=== PATIENT | female | born 1960 | race Asian ===

== ENCOUNTER → 2019-07-20 11:33 | Outpatient (CLI) | payer OTHER, SELFPAY ==
[2019-07-20 11:00] VITALS: BMI 18.8
[2019-07-20 12:33] LABS: Absolute Lymphocyte Count 3.07 X10^3/uL (0.83-4.51); Absolute Neutrophil Count 6.5 X10^3/uL (2.0-7.7); Basophil# 0.12 X10^3/uL; Basophil% 1.1 % (0-1); Eosinophil# 0.59 X10^3/uL; Eosinophils% 5.2 % (0-5); Hematocrit 42.9 % (37-47); Hemoglobin 13.6 g/dL (12.0-15.0); Lymphocyte # 3.07 X10^3/ul (4.0); Mean Corp Hgb Conc 31.7 g/dL (32-36); Mean Corpuscular Volume 91.5 fL (81-99); Mean Platelet Vol. 9.9 fl (6.2-12.0); Monocyte# 1.06 X10^3/uL; Monocyte% 9.3 % (0-10); NRBC Flagged by Analyzer 0 % (0-5); Neutrophil # 6.51 X10^3/uL (2.7-7.7); Neutrophil % 57.1 % (47-70); Platelet Count 302 K/mm3 (150-450); RBC Distribution Width CV 13.9 % (11.6-14.6); RBC Distribution Width SD 46.6 fl (35.1-43.9); Red Blood Count 4.69 M/mm3 (4.2-5.4); White Blood Count 11.4 K/mm3 (4.4-11.0)
[2019-07-20 13:20] LABS: ALB/GLOB Ratio 0.9 RATIO (0.9-2.4); AST(SGOT) 20 U/L (15-37); Alanine Aminotransfer ALT/SGPT 19 U/L (13-56); Albumin, Serum 3.8 g/dL (3.2-5.0); Alkaline Phosphatase 74 U/L (45-117); Anion Gap 6 (5-15); BUN 15 mg/dL (7-18); BUN/Creat Ratio 22.7 RATIO (10-20); Calcium,Total 8.3 mg/dL (8.5-10.1); Chloride 110 mmol/L (98-107); Cholesterol 145 mg/dL (200); Creatinine, Serum 0.66 mg/dL (0.55-1.02); EST Glomerular Filtration Rate 97 mL/min (>60); Est Glom Filt Rate - Afr Amer 118 mL/min (>60); Globulin 4.4 g/dL (2.2-4.2); Glucose 92 mg/dL (74-106); High Density Lipoprotein 57 mg/dL; Potassium 4.3 mmol/L (3.5-5.1); Protein, Total 8.2 g/dL (6.4-8.2); Sodium Level 141 mmol/L (136-145); Triglycerides 119 mg/dL; Very Low Density Lipoprotein 24 mg/dL (5-40)
== END ==
PROVIDERS: Family Provider Internal Medicine; PCP Internal Medicine; Visit Provider Internal Medicine
DX: I10 Essential (primary) hypertension (principal); Z72.0 Tobacco use
CPT/HCPCS: 36415; 80053; 80061; 85025

== ENCOUNTER → 2019-07-25 10:32 | Outpatient (CLI) | payer OTHER, SELFPAY ==
[2019-07-20 11:00] VITALS: BMI 18.8
--- NOTE | 2019-07-25 10:35 | EKG12_ITS ---
Test Reason : ROUTINE Blood Pressure : / mmHG Vent. Rate : 078 BPM Atrial Rate : 078 BPM P-R Int : 160 ms QRS Dur : 092 ms QT Int : 414 ms P-R-T Axes : 033 -35 059 degrees QTc Int : 471 ms Normal sinus rhythm Possible Left atrial enlargement Left axis deviation Abnormal ECG Confirmed by BREANNA WALLIS, JAYLAN ([id number]), web content editor MACIE COHEN ([id number]) on 07/26/2019 9:41:40 AM Referred By: Evan Benitez Confirmed By:JAYLAN CARLOS MD
[2020-11-02 11:22] VITALS: BMI 20.7
== END ==
PROVIDERS: Family Provider Internal Medicine; PCP Internal Medicine; Referring Provider Internal Medicine; Visit Provider Internal Medicine
DX: I10 Essential (primary) hypertension (principal); R07.9 Chest pain, unspecified
CPT/HCPCS: 93005

== ENCOUNTER → 2019-08-04 17:30 | Outpatient (CLI) | payer OTHER, SELFPAY ==
[2019-07-20 11:00] VITALS: BMI 18.8
--- NOTE | 2019-08-04 17:30 | BI_ITS ---
MAMMOGRAPHY - BILATERAL SCREENING 3-D TOMOSYNTHESIS REASON FOR EXAM: Female, 59 years old. BILAT SCREENING - NO FAM HX - NO PREV SURG''S PERTINENT HISTORY: No significant family history. TECHNIQUE: 2-D mammograms and 3-D Tomosynthesis of the breast (s) were performed. CAD was performed. COMPARISON: January 01, 2012 FINDINGS: The breast composition is heterogeneously dense that can obscure small breast masses. Scattered benign calcifications are seen. No dense spiculated masses or suspicious microcalcifications are identified. No architectural distortion is identified. There is no skin thickening or retraction. There has been no significant change since the prior study. BI/SCREEN MAMM (CAD) W/MARY BILAT IMPRESSION: No mammographic signs of malignancy. Routine yearly mammograms recommended. ASSESSMENT CATEGORY: BIRADS Category 2: Benign. A letter regarding these results will be sent to the patient by the facility within 30 days. FOLLOW UP RECOMMENDATION: Yearly follow up mammogram recommended. (A) Approximately 10% of breast cancers are not detected by mammography. A normal mammogram should not delay biopsy of a clinically suspicious abnormality. Electronically Signed: Benjy Venegas MD at 8:18 EST , Service support ,
== END ==
PROVIDERS: Family Provider Internal Medicine; PCP Internal Medicine; Referring Provider Internal Medicine; Visit Provider Internal Medicine
DX: Z12.31 Encounter for screening mammogram for malignant neoplasm of breast (principal)
CPT/HCPCS: 77063; 77067

== ENCOUNTER → 2019-08-23 14:09 | Outpatient (CLI) | payer OTHER, SELFPAY ==
[2019-08-05 15:35] VITALS: BMI 18.5
[2019-08-23 13:39] VITALS: BMI 18.9
--- NOTE | 2019-08-23 14:11 | CT_ITS ---
STUDY: LOW DOSE CT LUNG CANCER SCREENING REASON FOR EXAM: Female, 59 years old. LUNG SCREEN, SMOKER X 40+ YRS X 1 PPD RADIATION DOSAGE (If Supplied By Facility): CTDIvol = ( 1.70 ) mGy, DLP = ( 52.76 ) mGycm TECHNIQUE: No contrast was administered. Low dose technique was utilized (average mAS-38 and kVp 120). 1.25 mm axial source images with a slice interval of 1.25-mm were reconstructed in lung windows. 2.5 mm axial source images with a slice interval of 2.5-mm were reconstructed in lung windows. 5.0 mm axial source images with a slice interval of 5.0-mm were reconstructed in soft tissue windows. Nodule measured using lung windows on PACS and/or independent workstation with automated measurement of minimum and maximum diameter. Nodule measurement reported as average diameter rounded to the nearest whole number. Growth is defined as an increase ins size of greater than 1.5 mm. COMPARISON: None. NODULES: There is evidence of bilateral apical scarring worse in the right lung apex. Total lung nodules (excluding granulomas): Emphysema: Diffuse emphysematous changes. Bullous formation in both lungs. Endobronchial lesion: Aorta: Atherosclerotic calcification of the aortic arch and descending thoracic aorta. Coronary arteries: Coronary artery calcification. Heart: Mild cardiomegaly. Other chest and abdominal findings: Degenerative changes of the thoracic vertebrae. CT/Low Dose CT Lung Screening IMPRESSION: Lung-RADS category 2 - Continue annual screening with LDCT in 12 months. IMPORTANT NOTES FOR USE: ACR Lung-RADS Version 1.0 Assessment Categories Release Date: November 28, 2013 Category: Coded 0-4 bases on nodule(s) with highest degree of suspicion. Negative screen is defined as categories 1 and 2; a positive screen is defined as categories 3 and 4. Category 3 and 4A nodules that are unchanged on interval CT should be coded as category 2, and individuals returned to screening in 12 months. Category 4X: Category 3 or 4 nodules with additional imaging findings that increase the suspicion of lung cancer, such as spiculation, GGN that doubles in size in 1 year, enlarged lymph notes, etc. Category Modifiers: S (significant finding unrelated to lung cancer) and C (prior history of treated lung cancer) may be added to the 0-4 Lung-RADS Electronically Signed: Sanjay Hernandez, at 14:46 EST , Service support ,
== END ==
PROVIDERS: Family Provider Internal Medicine; PCP Internal Medicine; Referring Provider Nurse Practitioner Family; Visit Provider Nurse Practitioner Family
DX: F17.209 Nicotine dependence, unspecified, with unspecified nicotine-induced disorders (principal); Z12.2 Encounter for screening for malignant neoplasm of respiratory organs
CPT/HCPCS: G0297

== ENCOUNTER → 2019-08-25 12:08 | Outpatient (CLI) | payer OTHER, SELFPAY ==
[2019-08-25 12:07] VITALS: BMI 18.8
--- NOTE | 2019-08-25 12:09 | RAD_ITS ---
STUDY: X-RAY CHEST REASON FOR EXAM: Female, 59 years old. COUGH TECHNIQUE: PA and lateral views of the chest. COMPARISON: 02/02/2012 FINDINGS: The lungs are clear and expanded. There is no demonstrated pleural abnormality. There is moderate cardiac enlargement. Normal mediastinum and silverio. Normal visualized pulmonary arteries. Normal visualized aortic arch and descending thoracic aorta. Normal visualized thoracic spine. Normal visualized ribs, clavicles, and shoulders. There is no demonstrated abnormality of the visualized soft tissue structures of the upper abdomen. RAD/Chest PA and Lateral IMPRESSION: No active disease. Electronically Signed: Feroz Eid MD at 12:48 EST Tel , Service support ,
== END ==
LOC: HPRAD 12:09
PROVIDERS: PCP Internal Medicine; Referring Provider Physician Assistant; Visit Provider Physician Assistant
DX: R05 Cough (principal)
CPT/HCPCS: 71046

== ENCOUNTER → 2020-01-02 07:53 | Outpatient (CLI) | payer OTHER, SELFPAY ==
[2019-12-08 16:56] VITALS: BMI 18.9
--- NOTE | 2020-01-02 12:34 | PFT ---
INTRODUCTION: The patient is a 59-year-old female that presents for pulmonary function studies secondary to a diagnosis of dyspnea. Respiratory therapy reports good patient effort. Bronchodilators were used during testing. INTERPRETATION: Forced expiration spirometry demonstrates no evidence of a large airways obstructive ventilatory defect. There was no significant response to aerosolized bronchodilators. Spirograms are of good quality and plateau normally. Body plethysmography was performed and reveals a decreased TLC to 3.3 L, 77% of predicted, indicative of a mild restrictive ventilatory impairment. Diffusing capacity by single breath CO is at the lower limits of normal. IMPRESSION: Isolated mild restrictive ventilatory impairment with diffusing capacity at the lower limits of normal.
== END ==
PROVIDERS: PCP Internal Medicine; Referring Provider Nurse Practitioner Family; Visit Provider Nurse Practitioner Family
DX: J44.9 Chronic obstructive pulmonary disease, unspecified (principal)
CPT/HCPCS: 94060; 94726; 94729

== ENCOUNTER → 2020-11-02 11:17 | Outpatient (CLI) | payer MEDICAID, SELFPAY ==
[2020-11-02 10:36] VITALS: BMI 20.7
[2020-11-02 11:22] VITALS: BMI 20.7
[2020-11-02 12:06] LABS: Absolute Lymphocyte Count 2.58 X10^3/uL (0.83-4.51); Basophil# 0.08 X10^3/uL; Eosinophil# 0.29 X10^3/uL; Eosinophils% 3.7 % (0-5); Hematocrit 42.7 % (37-47); Hemoglobin 13.1 g/dL (12.0-15.0); Lymphocyte # 2.58 X10^3/ul (4.0); Lymphocyte % 32.5 % (19-41); Mean Corp Hgb Conc 30.7 g/dL (32-36); Mean Corpuscular Hgb 27.6 pg (27.0-32.0); Mean Corpuscular Volume 90.1 fL (81-99); Mean Platelet Vol. 9.9 fl (6.2-12.0); Monocyte# 0.93 X10^3/uL; Monocyte% 11.7 % (0-10); NRBC Flagged by Analyzer 0 % (0-5); Neutrophil # 4.04 X10^3/uL (2.7-7.7); Platelet Count 331 K/mm3 (150-450); RBC Distribution Width CV 14.9 % (11.6-14.6); RBC Distribution Width SD 49.7 fl (35.1-43.9); Red Blood Count 4.74 M/mm3 (4.2-5.4); White Blood Count 7.9 K/mm3 (4.4-11.0)
[2020-11-02 12:42] LABS: Vitamin D,25 Hydroxy 12.9 ng/mL
[2020-11-02 12:46] LABS: ALB/GLOB Ratio 0.8 RATIO (0.9-2.4); AST(SGOT) 17 U/L (15-37); Alanine Aminotransfer ALT/SGPT 16 U/L (13-56); Albumin, Serum 3.6 g/dL (3.2-5.0); Alkaline Phosphatase 81 U/L (45-117); Anion Gap 4 (5-15); BUN 14 mg/dL (7-18); BUN/Creat Ratio 22.5 RATIO (10-20); Calcium,Total 8.8 mg/dL (8.5-10.1); Chloride 110 mmol/L (98-107); Cholesterol 161 mg/dL (200); Creatinine, Serum 0.62 mg/dL (0.55-1.02); EST Glomerular Filtration Rate 104 mL/min (>60); Est Glom Filt Rate - Afr Amer 126 mL/min (>60); Globulin 4.6 g/dL (2.2-4.2); Glucose 78 mg/dL (74-106); High Density Lipoprotein 51 mg/dL; Potassium 4.2 mmol/L (3.5-5.1); Protein, Total 8.2 g/dL (6.4-8.2); Sodium Level 142 mmol/L (136-145); Thyroid Stim Hormone (TSH) 4.62 uIU/mL (0.358-3.74); Triglycerides 108 mg/dL; Very Low Density Lipoprotein 22 mg/dL (5-40)
[2020-11-02 15:10] LABS: T4 Free Direct 0.75 ng/dL (0.76-1.46)
== END ==
PROVIDERS: PCP Internal Medicine; Referring Provider Nurse Practitioner Family; Visit Provider Nurse Practitioner Family
DX: Z00.00 Encounter for general adult medical examination without abnormal findings (principal); F32.9 Major depressive disorder, single episode, unspecified; I10 Essential (primary) hypertension; E55.9 Vitamin D deficiency, unspecified; R79.89 Other specified abnormal findings of blood chemistry
CPT/HCPCS: 36415; 80053; 80061; 82306; 84439; 84443; 85025

== ENCOUNTER → 2020-11-15 13:50 | Outpatient (CLI) | payer MEDICAID, SELFPAY ==
[2020-11-02 11:22] VITALS: BMI 20.7
--- NOTE | 2020-11-15 13:53 | BI_ITS ---
MAMMOGRAPHY - BILATERAL SCREENING REASON FOR EXAM: Female, 60 years old. Routine annual screening examination. PERTINENT HISTORY: Non-contributory. TECHNIQUE: Digital bilateral breast mary (3D mammographic acquisition) in the CC and MLO projections. 2-D mediolateral oblique (MLO) and craniocaudad (CC) views of both breasts were obtained. CAD: Full Field Digital Mammography with Computer Added Detection was performed. COMPARISON: Comparison is made with prior study dated 02/02/2020 and 01/01/2012. FINDINGS: Breast Composition: The breasts are heterogeneously dense, which may obscure small masses. There are no dominant masses or suspicious calcifications. No other significant abnormalities are identified. There has been no significant change since the prior study. BI/SCRN MAMM (CAD)W/MARY BILAT IMPRESSION: Stable bilateral screening mammogram. Yearly follow-up mammogram recommended. (A) ASSESSMENT CATEGORY: BIRADS Category 1: Negative. A letter regarding these results will be sent to the patient by the facility within 30 days. Approximately 10% of breast cancers are not detected by mammography. A normal mammogram should not delay biopsy of a clinically suspicious abnormality. [id number] Electronically Signed: Sanjay Hernandez MD at 14:40 EDT , Service support ,
--- NOTE | 2020-11-15 14:25 | BD_ITS ---
STUDY: DUAL ENERGY X-RAY ABSORPTIOMETRY / DXA REASON FOR EXAM: Female, 60 years old. Screening TECHNIQUE: Bone Mineral Density (BMD) measurements of lumbar spine and bilateral hips were obtained. COMPARISON: None. FINDINGS: Lumbar Spine (L1-L4): g/cm2 (0.834) / T-score (-2.9) / Z-score (-1.7) Findings are suggestive of osteoporosis with a high fracture risk. Left Femur Total: g/cm2 (0.772) / T-score (-1.9) / Z-score (-0.9) Left Femoral Neck: g/cm2 (0.669) / T-score (-2.7) / Z-score (-1.4) Right Femur Total: g/cm2 (0.701) / T-score (-2.4) / Z-score (-1.5) Right Femoral Neck: g/cm2 (0.688) / T-score (-2.5) / Z-score (-1.3) BD/Dexa Bone Density Study IMPRESSION: The patient is considered osteoporotic as outlined below according to World Juan Organization (WHO) criteria with a high fracture risk. Reference Information: The T-score is the number of standard deviations above or below the standard which is normal for young adults at their peak bone mineral density. The World Health Organization (WHO) interprets the T-scores as follows: Above -1 Normal bone density Between -1 and -2.5 Osteopenia Equal to / or below -2.5 Osteoporosis As a practical clinical guideline, osteopenia may be graded as follows: Mild -1 through -1.5 Moderate -1.6 through -2.0 Severe -2.1 through -2.4 The Z-score is the number of standard deviations above or below age-matched controls. A Z-score of less than -1.5 would be considered abnormal. References: 1. NIH Osteoporosis and Related Bone Diseases www osteo.org 2. International Society for Clinical Densitometry www iscd.org 3. National Osteoporosis Foundation www nof.org Electronically Signed: Sanjay Hernandez MD at 14:51 EDT , Service support ,
== END ==
PROVIDERS: PCP Nurse Practitioner Family; Referring Provider Nurse Practitioner Family; Visit Provider Nurse Practitioner Family
DX: Z00.00 Encounter for general adult medical examination without abnormal findings (principal); Z78.0 Asymptomatic menopausal state; Z12.31 Encounter for screening mammogram for malignant neoplasm of breast
CPT/HCPCS: 77063; 77067; 77080

== ENCOUNTER → 2020-11-20 14:10 | Outpatient (CLI) | payer MEDICAID, SELFPAY ==
[2020-11-02 11:22] VITALS: BMI 20.7
[2020-11-20 13:52] VITALS: BMI 20.7
--- NOTE | 2020-11-20 14:12 | CT_ITS ---
STUDY: LOW DOSE CT LUNG CANCER SCREENING REASON FOR EXAM: Female, 60 years old. Lung cancer screening -- 41 pack year history; asymptomatic; current smoker RADIATION DOSAGE (If Supplied By Facility): CTDIvol = ( 1.59 ) mGy, DLP = ( 52.22 ) mGycm TECHNIQUE: No contrast was administered. Low dose technique was utilized (average mAS-38 and kVp 120). 1.25 mm axial source images with a slice interval of 1.25-mm were reconstructed in lung windows. 2.5 mm axial source images with a slice interval of 2.5-mm were reconstructed in lung windows. 5.0 mm axial source images with a slice interval of 5.0-mm were reconstructed in soft tissue windows. Nodule measured using lung windows on PACS and/or independent workstation with automated measurement of minimum and maximum diameter. Nodule measurement reported as average diameter rounded to the nearest whole number. Growth is defined as an increase ins size of greater than 1.5 mm. COMPARISON: Comparison is made with prior examination dated 08/23/2019. NODULES: No suspicious nodule is seen. Emphysema: Emphysematous changes. Bullous formations in both lungs. Stable scarring in the lung apices. Endobronchial lesion: None Aorta: Atherosclerotic calcification of the aortic arch. Coronary arteries: Coronary artery calcification. Heart: Mild cardiomegaly Other chest and abdominal findings: CT/Low Dose CT Lung Screening IMPRESSION: Lung-RADS category 2 - Continue annual screening with LDCT in 12 months. IMPORTANT NOTES FOR USE: ACR Lung-RADS Version 1.1 Assessment Categories Release Date: 2018 Category: Coded 0-4 bases on nodule(s) with highest degree of suspicion. Negative screen is defined as categories 1 and 2; a positive screen is defined as categories 3 and 4. Category 3 and 4A nodules that are unchanged on interval CT should be coded as category 2, and individuals returned to screening in 12 months. Category 4X: Category 3 or 4 nodules with additional imaging findings that increase the suspicion of lung cancer, such as spiculation, GGN that doubles in size in 1 year, enlarged lymph notes, etc. Category Modifiers: S (significant finding unrelated to lung cancer) Electronically Signed: Sanjay Hernandez MD at 15:02 EDT , Service support ,
== END ==
PROVIDERS: PCP Nurse Practitioner Family; Referring Provider Nurse Practitioner Family; Visit Provider Nurse Practitioner Family
DX: F17.209 Nicotine dependence, unspecified, with unspecified nicotine-induced disorders (principal); Z12.2 Encounter for screening for malignant neoplasm of respiratory organs
CPT/HCPCS: 71271

== ENCOUNTER 2020-11-22 09:41 | Outpatient (RCR) | payer MEDICAID, SELFPAY ==
[2020-11-20 13:52] VITALS: BMI 20.7
== END 2021-01-08 23:59 ==
LOC: IMMUN 09:41
PROVIDERS: PCP Nurse Practitioner Family; Referring Provider Family Medicine; Visit Provider Family Medicine
DX: Z23 Encounter for immunization (principal)
CPT/HCPCS: 0001A; 0002A; 91300

== ENCOUNTER → 2020-11-22 10:51 | Outpatient (CLI) | payer MEDICAID, SELFPAY ==
[2020-11-02 11:22] VITALS: BMI 20.7
[2020-11-20 13:52] VITALS: BMI 20.7
--- NOTE | 2020-11-22 10:54 | US_ITS ---
STUDY: ULTRASOUND BREAST - LEFT REASON FOR EXAM: Female, 60 years old. Pain in the left breast. TECHNIQUE: Axial and longitudinal images of the LEFT breast were performed with a high resolution ultrasound transducer. # OF IMAGES: 55 COMPARISON: Comparison is made with prior mammogram dated 11/15/2020. FINDINGS: LEFT Breast: The entire breast was examined by ultrasound. No sonographic abnormality is seen. US/Breast Complete Unilateral IMPRESSION: No sonographic abnormality is seen. ASSESSMENT CATEGORY: BIRADS Category 1: Negative. A letter regarding these results will be sent to the patient by the facility within 30 days. Electronically Signed: Sanjay Hernandez MD at 12:12 EDT , Service support ,
--- NOTE | 2020-11-22 12:59 | STRESSREP ---
Stress Test Report Date: 11/22/2020 Procedure: Exercise tolerance test Indications: Chest pain Consent: Per the patient Procedure: The patient exercised on a Kendrick protocol for 3 minutes achieving a peak heart rate of 137 bpm (85% predicted maximal heart rate) with a peak blood pressure 210/72 mmHg and a peak MET capacity of approximately 4.6 MET's. The baseline ECG demonstrated normal sinus rhythm. The peak exercise ECG demonstrated no significant ischemic changes. [There were no cardiac dysrhythmias pretest, during exercise, or recovery]. The functional capacity was considered decreased for age. The patient had no complaint of chest discomfort during exercise or recovery. The examination was discontinued secondary to dyspnea. Impression: 1. Technically adequate (percent predicted maximal heart rate greater than 85%) exercise tolerance test 2. Stress test is negative for exercise-induced chest pain. 3. Stress test test is negative for exercise-induced EKG changes of ischemia. 4. Functional capacity is decreased for age This note was generated with ReferBrightation software. It may contain incorrect words, spelling, and punctuation that were not noted in checking the note before signing.
== END ==
PROVIDERS: PCP Nurse Practitioner Family; Referring Provider Nurse Practitioner Family; Visit Provider Nurse Practitioner Family
DX: N64.4 Mastodynia (principal); R07.9 Chest pain, unspecified; I10 Essential (primary) hypertension; Z72.0 Tobacco use
CPT/HCPCS: 76641; 93017

== ENCOUNTER 2020-12-03 14:30 | Outpatient (RCR) | payer MEDICAID, SELFPAY ==
[2020-11-02 11:22] VITALS: BMI 20.7
--- NOTE | 2020-11-13 13:41 | HP.PTEVAL_ITS ---
Patient's Visit Information KELLEY BOSTON is a 60 year old F referred to Physical Therapy by JEF Quan with a diagnosis of BPPV. Date of Evaluation: 11/13/20 Physical Therapist: Stone Samuels, WAYNET, OCS, CSCS - Visit Plan Frequency: 1-2x /Week Duration: 2-4 Weeks Plan: 1-2x/week as needed for 2-4 weeks for positional monitorring and treatments, other vestibualr as needed. - Subjective Dizzyness for a year now. More bad days then good days. Some days feel normal. Hard to pinpoint what causes it. Gets sick at times. Haven't felt completely normal in a year. No impetous. Dizzyness is described as lightheaded and a little spinning. More light headed today. If I move too fast then I might spin. Try to avoid that. Threw up one time. No falls. getting up too fast and bending will make her worse. Fast lying in bed will cause it. Rolling bed can cause it for a bit until she is still. Sleep is OK. wakes up dizzy sometimes. Not employed because of this, would be if it wasn't for this but does not have a job. Has COPD also. Baasic ADLs at home are OK, just has to be slow. Hobbies: feels she cannot have fun anymore. Would enjoy fishing and riding. - Objective Walks normal and I, trasnfers I without EU, steps easily reciprocally without rail. Cervical aROM WFL and no pain. reflexes bi and tri 2/3, Sensation UE WNl to gross lgiht touch. aROM UE normal. - L hallpike michelle. + R hallpike michelle for asymmetrical dizzyness and discomfort in eyes open, hard to tell nystagmus with her discomfort. Treated with Julieta. - Balance Scores Functional Gait Assessment Score: 30 % Disability: 0 - Goals Goal 1:: abolish dizzyness Goal Time Frame: 4-6 Weeks Goal 2:: DHI score less than 10 Goal Time Frame: 4-6 Weeks Goal 3:: Pt feel 90% better with dizzyness and function Goal Time Frame: 4-6 Weeks Goal 4:: Pt feel ready to return to a job comfortably. Goal Time Frame: 4-6 Weeks - Rehabilitation Potential Physical Therapy Diagnosis: Likely BPPV as related dysfunction Rehabilitation Potential: Fair - Anticipated Interventions Patient/Client Instruction: Educate patient on: Condition, Plan of Care For the Purpose of:: To increase tolerance to activity/condition/position Comment: vestibular therapy, positional For the Purpose of:: To increase tolerance to activity/condition/position Thank you for the opportunity to evaluate your patient. For Medicare and Medicare HMO plans, please review the plan of care and approve it. It will need to be FAXED BACK to us at [phone] for Medicare purposes. For Medicare only, by signing this I certify the plan of care. Please let me know if there are questions or concerns regarding this plan of care. Physician Signature: Date:
--- NOTE | 2020-12-03 14:38 | HP.PTDCSUM ---
It has been my pleasure to treat KELLEY BOSTON referred by JEF Quan, with the diagnosis of BPPV for a total of 4 visit(s). Discharge Date: 12/03/20 Please see the following information for a summary of their discharge status. Subjective: No dizzyness. Slight very slight lightheadedness once in a blue whyte upon arising bet. Activities normal. Sleep is normal. To Dr. Mendoza next week. % Improvement: 99 Objective/Function: - B hallpike michelle. - roll test. FGA is still perfect. No dizzyness today except slight sitting up from R side. Overall significantly better. Goal 1:: abolish dizzyness Goal Progress: 99 Goal 2:: DHI score less than 10 Goal Progress: Progressing Goal 3:: Pt feel 90% better with dizzyness and function Goal Progress: Goal Met Goal 4:: Pt feel ready to return to a job comfortably. Goal Progress: Feels ready. Plan: d/c, pt to doc next week. Discharge Comments: 99% better adn to doctor next week. If there are questions or concerns regarding this patient's physical therapy, please feel free to call me at [phone]. Thank you for the referral of this patient. Sincerely, Stone Samuels, DPT, OCS, CSCS
== END 2020-12-03 19:00 | disposition home or self-care (01) ==
LOC: PT 14:30
PROVIDERS: PCP Nurse Practitioner Family; Referring Provider Nurse Practitioner Family; Visit Provider Nurse Practitioner Family
DX: H81.10 Benign paroxysmal vertigo, unspecified ear (principal)
CPT/HCPCS: 97110; 97161; 97164; 97530

== ENCOUNTER → 2021-03-08 10:31 | Outpatient (CLI) | payer MEDICAID, SELFPAY ==
[2021-03-08 10:06] VITALS: BMI 20.5
[2021-03-08 12:07] LABS: Vitamin D,25 Hydroxy 50.1 ng/mL
[2021-03-08 12:18] LABS: T4 Free Direct 0.78 ng/dL (0.76-1.46); Thyroid Stim Hormone (TSH) 4.14 uIU/mL (0.358-3.74)
[2021-03-08 13:21] LABS: Anion Gap 5 (5-15); BUN 15 mg/dL (7-18); BUN/Creat Ratio 22.4 RATIO (10-20); Calcium,Total 9.3 mg/dL (8.5-10.1); Chloride 108 mmol/L (98-107); Creatinine, Serum 0.67 mg/dL (0.55-1.02); EST Glomerular Filtration Rate 95 mL/min (>60); Est Glom Filt Rate - Afr Amer 115 mL/min (>60); Glucose 86 mg/dL (74-106); Sodium Level 140 mmol/L (136-145)
== END ==
PROVIDERS: Nurse Practitioner Family; PCP Internal Medicine; Referring Provider Internal Medicine; Visit Provider Internal Medicine
DX: M81.0 Age-related osteoporosis without current pathological fracture (principal); E55.9 Vitamin D deficiency, unspecified; E03.9 Hypothyroidism, unspecified
CPT/HCPCS: 36415; 80048; 82306; 84439; 84443

== ENCOUNTER → 2021-07-09 | Outpatient (CLI) | payer MEDICAID, SELFPAY | END | disposition home or self-care (01) | LOC: LABSPEC 11:31 | PROVIDERS: PCP Internal Medicine; Referring Provider Physician Assistant; Visit Provider Physician Assistant | DX: U07.1 COVID-19 (principal) | CPT/HCPCS: 87635; U0005; U0003 ==

== ENCOUNTER 2021-07-12 13:07 | Outpatient (CLI) | payer MEDICAID, SELFPAY ==
[2021-07-12 13:28] VITALS: BP 135/76; PULSE 72; RESP 16; TEMP 36.8; O2SAT 100; BMI 19.4
[2021-07-12] MEDS: 0.9% Saline Lock 10 ML Syringe IV (13:30)
[2021-07-12 13:42] VITALS: BP 134/69; PULSE 71; RESP 16; TEMP 36.6; O2SAT 100
--- NOTE | 2021-07-12 13:48 | NURSING ---
PT C/O OF BACK PAIN. INFUSION STOPPED. PAIN SUBSIDED AND INFUSION RESTARTED AT 150CC/HR.
[2021-07-12 14:32] VITALS: BP 123/72; PULSE 67; RESP 16; TEMP 36.7; O2SAT 97
[2021-07-12 15:26] VITALS: BP 131/73; PULSE 66; RESP 16; TEMP 36.6; O2SAT 100
== END 2021-07-12 15:32 | disposition home or self-care (01) ==
LOC: MS3OUT 13:08 → MS3 13:09
PROVIDERS: Referring Provider Nurse Practitioner Adult Health; Visit Provider Nurse Practitioner Adult Health
DX: Z23 Encounter for immunization (principal); U07.1 COVID-19
CPT/HCPCS: J7050; M0245; Q0245; A4216

== ENCOUNTER → 2022-03-24 | Outpatient (CLI) | payer MEDICAID, SELFPAY ==
--- NOTE | 2022-03-24 15:23 | RAD_ITS ---
STUDY: X-RAY CHEST REASON FOR EXAM: Female, 61 years old. Cough, crackles TECHNIQUE: PA and lateral views of the chest. COMPARISON: 08/25/2019 FINDINGS: The lungs are clear and expanded. There is no demonstrated pleural abnormality. Normal size heart. Normal mediastinum and silverio. Normal visualized pulmonary arteries. Normal visualized aortic arch and descending thoracic aorta. Normal visualized thoracic spine. Normal visualized ribs, clavicles, and shoulders. There is no demonstrated abnormality of the visualized soft tissue structures of the upper abdomen. RAD/Chest PA and Lateral IMPRESSION: Normal x-ray examination of the chest. Electronically Signed: Feroz Eid MD at 17:09 EDT ,
== END | disposition home or self-care (01) ==
PROVIDERS: PCP Internal Medicine; Referring Provider Physician Assistant; Visit Provider Physician Assistant
DX: R05.9 Cough, unspecified (principal); J44.9 Chronic obstructive pulmonary disease, unspecified
CPT/HCPCS: 87635; 71046; U0003; U0005

== ENCOUNTER → 2022-07-31 | Outpatient (CLI) | payer OTHER, MEDICAID, SELFPAY | END | disposition home or self-care (01) | LOC: LABSPEC 14:52 | PROVIDERS: PCP Internal Medicine; Referring Provider Internal Medicine; Visit Provider Internal Medicine | DX: R05.9 Cough, unspecified (principal) | CPT/HCPCS: 87635; U0003; U0005 ==

== ENCOUNTER → 2022-12-02 | Outpatient (CLI) | payer MEDICAID, SELFPAY ==
--- NOTE | 2022-12-02 09:26 | BI_ITS ---
MAMMOGRAPHY - BILATERAL SCREENING REASON FOR EXAM: Female, 62 years old. Routine annual screening examination. PERTINENT HISTORY: Non-contributory. TECHNIQUE: Digital bilateral breast mary (3D mammographic acquisition) in the CC and MLO projections. 2-D mediolateral oblique (MLO) and craniocaudad (CC) views of both breasts were obtained. CAD: Full Field Digital Mammography with Computer Added Detection was performed. COMPARISON: Comparison is made with prior study dated November 15, 2020 and August 04, 2019. FINDINGS: Breast Composition: The breasts are heterogeneously dense, which may obscure small masses. There are no dominant masses or suspicious calcifications. No other significant abnormalities are identified. There has been no significant change since the prior study. BI/SCRN MAMM (CAD)W/MARY BILAT IMPRESSION: Stable bilateral screening mammogram. Yearly follow-up mammogram recommended. (A) ASSESSMENT CATEGORY: BIRADS Category 1: Negative. A letter regarding these results will be sent to the patient by the facility within 30 days. Approximately 10% of breast cancers are not detected by mammography. A normal mammogram should not delay biopsy of a clinically suspicious abnormality. [id number] Electronically Signed: Sanjay Hernandez MD at 10:58 EDT ,
--- NOTE | 2022-12-02 10:21 | PFT ---
INTRODUCTION: The patient is a 62-year-old female who presents for pulmonary function studies secondary to a diagnosis of COPD. Respiratory therapy reported good patient effort. Bronchodilators were used during testing. INTERPRETATION: Forced expiration spirometry demonstrates no evidence of a large airways obstructive ventilatory defect. There was no significant response to aerosolized bronchodilators. Spirograms are of good quality and plateau normally. Body plethysmography was performed and revealed a decreased TLC to 3.27 L, 76% of predicted, indicative of a mild restrictive ventilatory impairment. Diffusing capacity by single breath CO was within normal limits. IMPRESSION: Mild restrictive ventilatory impairment with preserved diffusing capacity.
== END | disposition home or self-care (01) ==
LOC: OPBI 07:59
PROVIDERS: PCP Internal Medicine; Referring Provider Internal Medicine; Visit Provider Internal Medicine
DX: Z12.31 Encounter for screening mammogram for malignant neoplasm of breast (principal); J44.9 Chronic obstructive pulmonary disease, unspecified; Z72.0 Tobacco use
CPT/HCPCS: 77063; 77067; 94060; 94726; 94729

== ENCOUNTER → 2023-02-19 | Outpatient (CLI) | payer MEDICAID, SELFPAY ==
[2023-02-19 12:33] LABS: Absolute Lymphocyte Count 1.73 X10^3/uL (0.83-4.51); Absolute Neutrophil Count 4.9 X10^3/uL (2.0-7.7); Basophil# 0.09 X10^3/uL; Basophil% 1.1 % (0-1); Eosinophil# 0.75 X10^3/uL; Hematocrit 41.2 % (37-47); Hemoglobin 12.4 g/dL (12.0-15.0); Lymphocyte # 1.73 X10^3/ul (0.83-4.51); Lymphocyte % 20.9 % (19-41); Mean Corp Hgb Conc 30.1 g/dL (32-36); Mean Corpuscular Hgb 27.1 pg (27.0-32.0); Mean Corpuscular Volume 90.2 fL (81-99); Mean Platelet Vol. 9.9 fl (6.2-12.0); Monocyte# 0.75 X10^3/uL; NRBC Flagged by Analyzer 0 % (0-5); Neutrophil # 4.94 X10^3/uL (2.7-7.7); Neutrophil % 59.6 % (47-70); Platelet Count 301 K/mm3 (150-450); Red Blood Count 4.57 M/mm3 (4.2-5.4); White Blood Count 8.3 K/mm3 (4.4-11.0)
[2023-02-19 13:40] LABS: ALB/GLOB Ratio 0.8 RATIO (0.9-2.4); AST(SGOT) 21 U/L (15-37); Alanine Aminotransfer ALT/SGPT 16 U/L (13-56); Albumin, Serum 3.4 g/dL (3.2-5.0); Alkaline Phosphatase 74 U/L (45-117); Anion Gap 5 (5-15); BUN 15 mg/dL (7-18); BUN/Creat Ratio 23.4 RATIO (10-20); Calcium,Total 8.4 mg/dL (8.5-10.1); Chloride 110 mmol/L (98-107); Cholesterol 153 mg/dL (200); Creatinine, Serum 0.64 mg/dL (0.55-1.02); EST Glomerular Filtration Rate 99 mL/min (>60); Est Glom Filt Rate - Afr Amer 120 mL/min (>60); Globulin 4.4 g/dL (2.2-4.2); Glucose 79 mg/dL (74-106); High Density Lipoprotein 52 mg/dL; Potassium 3.6 mmol/L (3.5-5.1); Protein, Total 7.8 g/dL (6.4-8.2); Sodium Level 139 mmol/L (136-145); T4 Free Direct 0.82 ng/dL (0.76-1.46); Thyroid Stim Hormone (TSH) 1.86 uIU/mL (0.358-3.74); Triglycerides 87 mg/dL; Very Low Density Lipoprotein 17 mg/dL (5-40)
== END | disposition home or self-care (01) ==
LOC: BIMLAB 11:12
PROVIDERS: PCP Internal Medicine; Referring Provider Internal Medicine; Visit Provider Internal Medicine
DX: K59.09 Other constipation (principal); I10 Essential (primary) hypertension
CPT/HCPCS: 36415; 80053; 80061; 84439; 84443; 85025

== ENCOUNTER → 2023-04-13 | Outpatient (CLI) | payer MEDICAID, SELFPAY ==
--- NOTE | 2023-04-13 07:59 | CT_ITS ---
STUDY: CT ABDOMEN AND PELVIS WITH CONTRAST REASON FOR EXAM: Female, 62 years old. Chronic constipation. Abd pain RADIATION DOSAGE (If Supplied By Facility): CTDIvol = ( 13.4 ) mGy, DLP = ( 311.84 ) mGycm TECHNIQUE: Transaxial images were obtained from the dome of the diaphragm to the symphysis pubis with oral contrast. Oral and amp; IV Gastrografin and amp; 100mL Isovue-370 was administered. Sagittal and coronal images were reconstructed. Individualized dose optimization techniques were used for this CT. COMPARISON: None. FINDINGS: Increased interstitial markings at the lung bases suggestive of mild scarring. The visualized portions of the heart are within normal limits. Normal liver. Normal gallbladder and extrahepatic biliary system. Normal spleen. Normal pancreas. Normal bilateral adrenal glands. Normal right kidney. Normal left kidney. Normal visualized stomach. Normal small intestine. Moderate amount of fecal material is seen throughout the colon. The appendix is visualized and appears normal. Normal abdominal aorta. Normal inferior vena cava. Normal retroperitoneum. Small lymph nodes are seen in the mesenteric fat in the right lower quadrant suggestive of mesenteric adenitis. Normal urinary bladder. There is absence of the uterus consistent with a prior hysterectomy. Normal abdominal wall. Straightening of the normal lumbar lordosis. CT/Abdomen/Pelvis WITH Contrast IMPRESSION: Moderate amount of fecal material is seen in the colon. Electronically Signed: Sanjay Hernandez MD at 15:27 EDT ,
[2023-04-13 11:01] LABS: CREATININE FINGERSTICK 0.9 mg/dL (0.55-1.02); EGFR FINGERSTICK > 60.0000 mL/min (>60)
== END | disposition home or self-care (01) ==
LOC: CT 07:52
PROVIDERS: PCP Internal Medicine; Referring Provider Internal Medicine; Visit Provider Internal Medicine
DX: K59.09 Other constipation (principal)
CPT/HCPCS: 74177; Q9967

== ENCOUNTER 2024-08-16 08:57 | Observation (INO) | payer BC, SELFPAY ==
[2024-08-16 08:58] VITALS: BP 116/75; PULSE 94; RESP 16; TEMP 36.2; O2SAT 98; BMI 18.9
--- NOTE | 2024-08-16 09:20 | RAD_ITS ---
STUDY: X-RAY CHEST REASON FOR EXAM: Female, 64 years old. Palpitations TECHNIQUE: Single AP portable view of the chest. COMPARISON: Comparison is made with prior study dated March 24, 2022. FINDINGS: EKG electrodes are seen. Findings suggestive of vascular congestion and mild degree of CHF. There is no demonstrated pleural abnormality. There is mild cardiac enlargement. Normal mediastinum and silverio. Normal visualized pulmonary arteries. There is atherosclerotic calcification of the aortic arch with tortuosity. There are degenerative changes of the visualized thoracic spine. Normal visualized ribs, clavicles, and shoulders. There is no demonstrated abnormality of the visualized soft tissue structures of the upper abdomen. RAD/Chest 1 View (Portable) IMPRESSION: Findings suggest vascular congestion and mild CHF. Electronically Signed: Sanjay Hernandez MD at 9:47 EST ,
--- NOTE | 2024-08-16 09:25 | EDS_ITS ---
HPI History of Present Illness Chief Complaint: Chest Pain Narrative Narrative: Chief complaint and HPI: Palpitations. 64-year-old female with no significant past medical history presents for evaluation of intermittent palpitations. Patient states she has a remote history of hypertension and no longer takes any medication. Patient states for the past several months she has been having intermittent palpitations and hypotension at home. She states she called her PCP and has an appointment scheduled for next month. Patient states she woke up this morning with palpitations which is why she presents. She denies any chest pain, shortness of breath, nausea, vomiting, abdominal pain, diarrhea. Denies any cardiac history. On presentation, patient is in atrial fibrillation with RVR. She states she has no history of this. Review of systems: See HPI Medications: As listed on the chart Allergies: As listed on the chart PFSH: Per chart Vital signs: As listed on the chart. Reviewed. Physical exam: Gen: A&O x3, NAD Head: Normocephalic, atraumatic Eyes: No sclera icterus, conjunctiva clear ENT: Moist mucous membranes Neck: Trachea midline, No JVD CV: Tachycardic, irregularly irregular rhythm, no murmurs, no peripheral edema Resp: Lungs CTA BL, no w/r/c GI: Abd soft, non-distended, non-tender, no r/r/g Musc: Full ROM, no deformity Skin: Warm, dry Neuro: Alert, oriented, grossly intact, sensation intact Psych: Cooperative, appropriate mood and affect [facility] Medical History Health care maintenance Chronic constipation Tobacco abuse Chronic obstructive pulmonary disease Chest pain, atypical Rib pain Cough Flu vaccine need Osteoporosis Right foot pain Vitamin D deficiency Vertigo Back pain Chest pain Migraines Shoulder pain, right SOB (shortness of breath) Weight loss HTN (hypertension) Home Medications ?Medication ?Instructions ?Recorded ?Last Taken ?Type albuterol sulfate 90 mcg/actuation 1 puff inhalation Q6H PRN PRN 08/16/24 Unknown History aerosol inhaler shortness of breath or wheezing Allergy/AdvReac Type Severity Reaction Status Date / Time No Known Allergies Allergy Verified 08/16/24 08:58 Family History Brother Lung cancer Father Myocardial infarction Social History Smoking Status: Current every day smoker tobacco type: cigarettes Tobacco: How many years used: 40 Electronic Cigarette Use: not used second hand exposure: Yes quit status: has quit before EXAM Physical Exam Const Vital Signs: 08/16/24 08:58 08/16/24 09:19 Temperature 97.1 F L Temperature Source Temporal Pulse Rate 94 Respiratory Rate 16 Respiratory Effort Normal Non-Labored Blood Pressure 116/75 Blood Pressure Mean 88 Pulse Ox 98 Oxygen Delivery Method Room Air MDM MDM MDM Narrative Medical decision making narrative: 64-year-old female with no significant past medical history presents for evaluation of intermittent palpitations. Symptoms ongoing for months. Denies any chest pain or shortness of breath. On presentation, patient is in atrial fibrillation with RVR. Heart rate is anywhere from the 120s to the 160s. This is likely the cause of her palpitations. She has no history of this. Differential diagnosis includes but is not limited to symptomatic atrial fibrillation, electrolyte abnormality, hyperthyroidism, ANAHY, less likely ACS or CHF. Patient's blood pressure is soft therefore NS bolus ordered with diltiazem IV for rate control. Cardiac workup ordered. EKG reviewed. Heart rate improved with diltiazem bolus. Chest x-ray reviewed. CBC without leukocytosis or anemia. Coagulation panel unremarkable. BMP without ANAHY. Magnesium level unremarkable. Troponin unremarkable. BNP mildly elevated at 285. This is consistent with chest x-ray showing mild CHF. Likely secondary to patient's atrial fibrillation. TSH is low concerning for hyperthyroidism. Will obtain free T4. On reevaluation, patient's blood pressure has improved. Her rate has been controlled into the 90s. Patient will warrant admission for further atrial fibrillation workup including echocardiogram. Her [id number] score is 0 and therefore no anticoagulation is recommended at this time. Patient was updated of all of all her results and confirmed understanding of the plan. Patient was discussed with the hospitalist service who accepted admission. EKG: Interpreted by me/EM physician: EKG shows atrial fibrillation with RVR. Heart rate 149. No acute ischemic changes. EKG after diltiazem again shows atrial fibrillation with now rate controlled at 99. No acute ischemic changes. Diagnostic: Interpreted by me/EM physician: Chest x-ray shows mild vascular congestion. No pneumonia, large effusion, pneumothorax Impression: 1. Atrial fibrillation with RVR, now rate controlled, new onset 2. Mild CHF exacerbation 3. Concern for hyperthyroidism Lab Data Labs: Laboratory Results - last 24 hr 08/16/24 09:15 WBC 10.2 RBC 5.01 Hgb 13.1 Hct 42.3 MCV 84.4 MCH 26.1 L MCHC 31.0 L RDW Std Deviation 43.3 RDW Coeff of Loraine 14.3 Plt Count 379 MPV 9.8 Immature Gran % (Auto) 0.400 Neut % (Auto) 68.6 Lymph % (Auto) 19.5 [place] % (Auto) 9.5 Eos % (Auto) 1.3 Baso % (Auto) 0.7 Absolute Neuts (auto) 7.0 Absolute Lymphs (auto) 1.98 Nucleated RBC % 0 PT 13.2 INR 1.0 APTT 29.1 Sodium 142 Potassium 4.3 Chloride 112 H Carbon Dioxide 25.0 Anion Gap 5 BUN 20 H Creatinine 0.66 Estim Creat Clear Calc 61.85 Est GFR (MDRD) Af Amer 116 Est GFR (MDRD) Non-Af 96 BUN/Creatinine Ratio 30.3 H Glucose 111 H Calcium 9.1 Magnesium 2.3 Troponin I High Sens 22 B-Natriuretic Peptide 285.2 H TSH < 0.005 L Free T4 1.29 Radiography Diagnostic Testing: Clinical Impression(s) from Imaging Studies Chest X-Ray 08/16/24 09:20 IMPRESSION: Findings suggest vascular congestion and mild CHF. Electronically Signed: Sanjay Hernandez MD at 9:47 EST , Discharge Plan Triage Chief Complaint: Chest Pain ED Provider: Antwan Pereira Dx/Rx/DC Orders Primary Care Provider: Evan Benitez
[2024-08-16] MEDS: 0.9% Normal Saline (1000mL) 1,000 ML 999 ML IV (09:29)
[2024-08-16] MEDS: dilTIAZem 25 MG/5 ML Vial 10 MG IV BOLUS (09:29)
[2024-08-16 09:44] LABS: Absolute Lymphocyte Count 1.98 X10^3/uL (0.83-4.51); Basophil# 0.07 X10^3/uL; Basophil% 0.7 % (0-1); Eosinophil# 0.13 X10^3/uL; Eosinophils% 1.3 % (0-5); Hematocrit 42.3 % (37-47); Hemoglobin 13.1 g/dL (12.0-15.0); Lymphocyte # 1.98 X10^3/ul (0.83-4.51); Lymphocyte % 19.5 % (19-41); Mean Corpuscular Hgb 26.1 pg (27.0-32.0); Mean Corpuscular Volume 84.4 fL (81-99); Mean Platelet Vol. 9.8 fl (6.2-12.0); Monocyte# 0.97 X10^3/uL; Monocyte% 9.5 % (0-10); NRBC Flagged by Analyzer 0 % (0-5); Neutrophil # 6.98 X10^3/uL (2.7-7.7); Neutrophil % 68.6 % (47-70); Platelet Count 379 K/mm3 (150-450); RBC Distribution Width CV 14.3 % (11.6-14.6); RBC Distribution Width SD 43.3 fl (35.1-43.9); Red Blood Count 5.01 M/mm3 (4.2-5.4); White Blood Count 10.2 K/mm3 (4.4-11.0)
[2024-08-16 09:55] LABS: Prothrombin Time (Protime)PT. 13.2 SECONDS (11.7-14.9)
[2024-08-16 09:56] LABS: Partial Thromboplast Time 29.1 Seconds (24.1-36.2)
[2024-08-16 10:09] LABS: BNP,B-Type NATRIURETIC PEPTIDE 285.2 pg/mL (0-100)
[2024-08-16 10:13] LABS: Anion Gap 5 (5-15); BUN 20 mg/dL (7-18); BUN/Creat Ratio 30.3 RATIO (10-20); Calcium,Total 9.1 mg/dL (8.5-10.1); Chloride 112 mmol/L (98-107); Creatinine, Serum 0.66 mg/dL (0.55-1.02); EST Glomerular Filtration Rate 96 mL/min (>60); Est Glom Filt Rate - Afr Amer 116 mL/min (>60); Estimated Creatinine Clearance 61.85 ml/min; Glucose 111 mg/dL (74-106); Magnesium 2.3 mg/dL (1.6-2.6); Potassium 4.3 mmol/L (3.5-5.1); Sodium Level 142 mmol/L (136-145); Thyroid Stim Hormone (TSH) < 0.005 uIU/mL (0.358-3.740); Troponin-I HS (w/2H Reflex) 22 pg/mL (3.0-54.0)
[2024-08-16 11:09] VITALS: BP 132/84; PULSE 93; RESP 22; TEMP 36.8; O2SAT 99
[2024-08-16 11:26] LABS: Free T4 1.29 ng/dL (0.76-1.46)
[2024-08-16 11:40] LABS: Reflex Troponin-HS? (from REC) Y
--- NOTE | 2024-08-16 11:49 | CASEMGMT ---
Care Management Face to Face with patient for initial transition planning/care coordination assessment in the ED. This conventional underwriter introduced self and role at [facility]. Patient lying in bed, alert and oriented. Patient willing to participate in assessment and is able to answer all questions appropriately. Patient's significant other, Brady, bedside and patient gave permission to talk in front of guest. Care providers, pharmacy, and demographics verified. Admitting Diagnosis: a-fib with RVR Other diagnosis history: hx of hypertension PCP: Dr. Benitez Specialists: none Preferred Pharmacy: prefers [facility], but apparently [facility]; patient is new to this insurance. Insurance: [employer] Prescription Benefit: none Living Will/HPOA: none; denies needing information, but was open to education on what advance directives were. LNOK: 2 daughters and 2 sons; 1 son lives locally. Only 2 daughters who live near [place] are emergency contacts and that being correct was verified with patient. Living Arrangements: mobile home with significant other; 5 steps to enter; independent with all ADLs. Transportation: patient drives. DME: blood pressure cuff HHC: none SNF/Rehab: none Community Resources: none Patient goals: Patient wishes to discharge home and denies need for SNF or HHC at this time. Patient states she has no further needs or concerns. Disposition Plan: admission to acute; RN CM/SW to follow for discharge planning needs that may arise. Marisol White, FRAME OPENER, WAIVER ANALYST
[2024-08-16 12:45] LABS: Troponin-I HS 29 pg/mL (3.0-54.0)
--- NOTE | 2024-08-16 12:45 | ECHOD_ITS ---
Reason For Study: Afib, Aflutter Procedure This was a 2D Doppler, Color Flow transthoracic echocardiogram. Myocardial strain analysis was performed in this exam to aid in the assessment of cardiac function. Exam performed portable in patient room. Left Ventricle Normal LV size. Moderate concentric left ventricular hypertrophy. Left ventricular systolic function is normal. The left ventricular ejection fraction is 60 %. Stage 1 diastolic dysfunction. No regional wall motion abnormalities noted. Right Ventricle Normal RV size. Normal systolic function. Atria Normal left atrium. Normal right atrium. Mitral Valve There is moderate mitral annular calcification. Tricuspid Valve Normal tricuspid valve. Mild to moderate (1-2+) tricuspid valve insufficiency. Pulmonary artery systolic pressure is 46 mmHg. Aortic Valve Trisinus/trileaflet aortic valve. Pulmonic Valve Normal pulmonic valve. Mild (1+) pulmonic valve insufficiency. Great Vessels Normal aortic root. The pulmonary artery is normal size. Normal inferior vena cava. Pericardium/Pleural No pericardial effusion. MMode/2D Measurements & Calculations LVIDd: 3.4 cm IVSd: 1.5 cm asc Aorta Diam: 3.3 cm LVIDs: 1.8 cm LVPWd: 1.6 cm RVDd: 2.9 cm FS: 47.9 % LAV(MOD-bp): 53.2 ml LVAd ap4: 17.9 cm2 SV(MOD-sp4): 22.7 ml LAV(MOD-bp) Indexed: 37.8 ml/m2 LVLd ap4: 7.1 cm SI(MOD-sp4): 16.1 ml/m2 LAV(MOD-sp2): 49.4 ml EDV(MOD-sp4): 37.5 ml LAV(MOD-sp4): 50.6 ml EDV(sp4-el): 38.5 ml LVAs ap4: 9.6 cm2 LVLs ap4: 5.6 cm ESV(MOD-sp4): 14.8 ml ESV(sp4-el): 13.9 ml EF(MOD-sp4): 60.5 % EF(sp4-el): 63.8 % SV(sp4-el): 24.6 ml LA A4 area: 19.9 cm2 LA dimension(2D): 3.6 cm RA A4 area: 13.1 cm2 TAPSE: 2.1 cm Time Measurements MV dec time: 0.23 sec Doppler Measurements & Calculations MV E max daryn: 94.5 cm/sec Lat Peak E' Daryn: 10.1 cm/sec Med Peak E' Daryn: 7.2 cm/sec MV A max daryn: 105.9 cm/sec E/E' lat: 9.4 E/E' med: 13.2 MV E/A: 0.89 Ao V2 max: 145.3 cm/sec LV V1 max: 112.9 cm/sec MV dec slope: 406.6 cm/sec2 Ao max P.4 mmHg LV V1 max P.1 mmHg Ao V2 mean: 95.8 cm/sec LV V1 mean P.6 mmHg Ao mean P.3 mmHg LV V1 mean: 75.0 cm/sec Ao V2 VTI: 30.3 cm LV V1 VTI: 23.4 cm AV (velocity ratio): 0.77 PA V2 max: 72.4 cm/sec TR max daryn: 320.5 cm/sec TR max P.1 mmHg ECHO/Echo Complete Interpretation Summary Normal LV size. Left ventricular systolic function is normal. The left ventricular ejection fraction is 60 %. Moderate concentric left ventricular hypertrophy. Stage 1 diastolic dysfunction. Dilated coronary sinus Pulmonary artery systolic pressure is 46 mmHg. The global longitudinal strain is borderline abnormal. Ordering Physician: Timur Lo Referring Physician: Evan Benitez Performed By: Claire Mai, DANA, RVT
[2024-08-16 12:49] VITALS: BMI 18.6
--- NOTE | 2024-08-16 12:56 | EKG12_ITS ---
Test Reason : Blood Pressure : */* mmHG Vent. Rate : 71 BPM Atrial Rate : 71 BPM P-R Int : 142 ms QRS Dur : 78 ms QT Int : 420 ms P-R-T Axes : 5 -18 49 degrees QTcB Int : 456 ms Normal sinus rhythm Normal ECG When compared with ECG of 16-Aug-2024 09:47, MANUAL COMPARISON REQUIRED DATA IS UNCONFIRMED Confirmed by BREANNA WALLIS, JAYLAN ([id number]), department editor SEAN BELTRÁN ([id number]) on 08/17/2024 9:37:03 AM Referred By: TESS Confirmed By: JAYLAN CARLOS MD
[2024-08-16 12:59] VITALS: BP 123/70; PULSE 71; RESP 16; TEMP 36.6; O2SAT 100
[2024-08-16 13:56] LABS: Free T3 4.4 pg/mL (2.18-3.98)
[2024-08-16 17:00] VITALS: BP 114/66; PULSE 73; RESP 16; TEMP 36.9; O2SAT 100
[2024-08-16] MEDS: Methimazole 5 MG Tablet 10 MG PO (18:09)
--- NOTE | 2024-08-16 20:13 | PCM.HP.STD ---
HPI - General General Date of Admission: 08/16/24 HPI Narrative KELLEY BOSTON, is a 64 F who presents to the hospital with palpitations over the last couple of weeks to months with intermittent chest pain associated with these episodes of palpitations. She has episodes of shortness of breath and dizziness with these palpitation episodes. She does have difficulty sleeping and has a lot of energy and struggle to gain weight. She is very thin and in the ER was found to be in A-fib with RVR, this broke with a single dose of Cardizem and she returned to normal sinus after admission. TSH is significantly low and T4 4 was normal but T3 was elevated to 4.44. Initial troponin was unremarkable as was repeat troponin and EKG was nonischemic. [facility] Medical History (Updated 08/16/24 @ 20:[address] Timur Lo MD) Health care maintenance Chronic constipation Tobacco abuse Chronic obstructive pulmonary disease Chest pain, atypical Rib pain Cough Flu vaccine need Osteoporosis Right foot pain Vitamin D deficiency Vertigo Back pain Chest pain Migraines Shoulder pain, right SOB (shortness of breath) Weight loss HTN (hypertension) Home Medications ?Medication ?Instructions ?Recorded ?Last Taken ?Type albuterol sulfate 90 mcg/actuation 1 puff inhalation Q6H PRN PRN 08/16/24 Unknown History aerosol inhaler shortness of breath or wheezing Allergy/AdvReac Type Severity Reaction Status Date / Time No Known Allergies Allergy Verified 08/16/24 08:58 Family History Brother Lung cancer Father Myocardial infarction Social History Smoking Status: Current every day smoker tobacco type: cigarettes Tobacco: How many years used: 40 Electronic Cigarette Use: not used second hand exposure: Yes quit status: has quit before ROS Constitutional Constitutional: Denies chills, fatigue, fever(s) or malaise Eyes Eyes: Denies blurry vision ENT HEENT: Denies headache(s) or nasal discharge Cardiovascular Cardiovascular: Reports chest pain, lightheadedness, palpitations and rapid heart rate; Denies dyspnea on exertion or syncope Respiratory/Chest Respiratory/Chest: Denies cough, shortness of breath at rest or shortness of breath with exertion Gastrointestinal Gastrointestinal: Denies constipation, diarrhea, nausea or vomiting Genitourinary Genitourinary: Denies dysuria Neurologic Neurologic: Denies focal weakness, numbness or tremor(s) Psychiatric Psychiatric: Denies anxiety or depression Vital Signs Vital Signs Vital Signs: 08/16/24 08:58 08/16/24 09:19 08/16/24 11:09 Temperature 97.1 F L 98.2 F Temperature Source Temporal Pulse Rate 94 93 Respiratory Rate 16 22 H Respiratory Effort Normal Non-Labored Respiratory Depth Respiratory Pattern Blood Pressure 116/75 132/84 H Blood Pressure Mean 88 100 Blood Pressure Source Blood Pressure Position Blood Pressure Location Pulse Ox 98 99 Oxygen Delivery Method Room Air 08/16/24 12:59 08/16/24 17:00 08/16/24 17:00 Temperature 97.9 F 98.5 F Temperature Source Oral Oral Pulse Rate 71 73 Respiratory Rate 16 16 Respiratory Effort Normal Respiratory Depth Normal Respiratory Pattern Normal Blood Pressure 123/70 H 114/66 Blood Pressure Mean 87 82 Blood Pressure Source Monitor Monitor Blood Pressure Position Semi-Fowlers Semi-Fowlers Blood Pressure Location Right Arm Right Arm Pulse Ox 100 100 Oxygen Delivery Method Room Air Room Air Room Air Weight Weight: 98 lb 4.8 oz Body Mass Index (BMI) 18.6 Physical Exam Narrative General: Alert, Oriented x3, Cooperative, No apparent distress, thin HEENT: Atraumatic, PERRLA, EOMI, Normocephalic Oral: Moist Mucosa Neck: Supple, No JVD Lungs: Clear to auscultation, Normal air movement, No rhonchi, No wheeze, No rales Cardiovascular: Regular rate, Regular Rhythm, Normal S1, Normal S2, No murmurs Abdomen: Soft, Non Tender, Non-Distended, No Hepato-splenomegaly Extremities: No edema, Capillary Refill Less than 3 Seconds Skin: No rashes, No breakdown Musculoskeletal: No Tenderness to Palpation of Joints or Extremities Neurological: No focal neurological deficits, Motor Exam 5/5 strength throughout, Sensory exam intact to light touch and pain Psych/Mental Status: Normal Affect, Appropriate Results Lab / Micro Data 08/16/24 09:15 08/16/24 09:15 Labs: Laboratory Results - last 24 hr 08/16/24 09:15: WBC 10.2, RBC 5.01, Hgb 13.1, Hct 42.3, MCV 84.4, MCH 26.1 L, MCHC 31.0 L, RDW Std Deviation 43.3, RDW Coeff of [place]aine 14.3, Plt Count 379, MPV 9.8, Immature Gran % (Auto) 0.400, Neut % (Auto) 68.6, Lymph % (Auto) 19.5, Green % (Auto) 9.5, Eos % (Auto) 1.3, Baso % (Auto) 0.7, Absolute Neuts (auto) 7.0, Absolute Lymphs (auto) 1.98, Nucleated RBC % 0, PT 13.2, INR 1.0, APTT 29.1, Sodium 142, Potassium 4.3, Chloride 112 H, Carbon Dioxide 25.0, Anion Gap 5, BUN 20 H, Creatinine 0.66, Estim Creat Clear Calc 61.85, Est GFR (MDRD) Af Amer 116, Est GFR (MDRD) Non-Af 96, BUN/Creatinine Ratio 30.3 H, Glucose 111 H, Calcium 9.1, Magnesium 2.3, Troponin I High Sens 22, B-Natriuretic Peptide 285.2 H, TSH < 0.005 L, Free T4 1.29 08/16/24 11:50: Troponin I High Sens 29, Free T3 pg/dL 4.4 H Imaging Radiology Impression Chest X-Ray 08/16/24 09:20 IMPRESSION: Findings suggest vascular congestion and mild CHF. Electronically Signed: Sanjay Hernandez MD at 9:47 EST , Echocardiogram 08/16/24 12:45 Interpretation Summary Normal LV size. Left ventricular systolic function is normal. The left ventricular ejection fraction is 60 %. Moderate concentric left ventricular hypertrophy. Stage 1 diastolic dysfunction. Dilated coronary sinus Pulmonary artery systolic pressure is 46 mmHg. The global longitudinal strain is borderline abnormal. Ordering Physician: Timur Lo Referring Physician: Evan Benitez Performed By: Claire Mai, DANA, RVT Assessment & Plan Assessment/Plan (1) T3 thyrotoxicosis: PLAN: Plan 1. T3 thyrotoxicosis leading to new onset A-fib ? She has a [id number] of 1 due to her thyroid disease secondary to her being a female therefore will not anticoagulate ? Continue with methimazole ? Thyroid peroxidase antibody has been sent ? I did discuss the case with outpatient endocrinology who is aware of her and will see her in the outpatient setting ? Will continue with metoprolol 25 mg p.o. twice daily ? Echocardiogram was unremarkable with stage I diastolic dysfunction and an EF of 60% 2. Asthma ? Stable ? Not in exacerbation, can resume her albuterol on discharge DVT: Lovenox 75 minutes was spent on direct patient care, including documentation as well as chart review and collaboration with colleagues Charges/Coding Visit Charges Inpatient E&M: 71897 Init Hosp L3
[2024-08-16 20:54] VITALS: BP 128/61; PULSE 82
[2024-08-16] MEDS: Metoprolol Tartrate 25 MG Tablet PO (20:54)
[2024-08-16] MEDS: Acetaminophen 325 MG Tablet 650 MG PO (20:55)
[2024-08-16 21:00] VITALS: BP 128/61; PULSE 82; RESP 16; TEMP 36.8; O2SAT 98
[2024-08-16 21:07] LABS: Troponin-I HS 17 pg/mL (3.0-54.0)
[2024-08-17 03:00] VITALS: BP 117/56; PULSE 60; RESP 18; TEMP 36.9; O2SAT 98
[2024-08-17 05:27] LABS: Absolute Lymphocyte Count 2.57 X10^3/uL (0.83-4.51); Absolute Neutrophil Count 4.4 X10^3/uL (2.0-7.7); Basophil# 0.08 X10^3/uL; Eosinophil# 0.29 X10^3/uL; Eosinophils% 3.5 % (0-5); Hematocrit 38.8 % (37-47); Hemoglobin 12.3 g/dL (12.0-15.0); Lymphocyte # 2.57 X10^3/ul (0.83-4.51); Lymphocyte % 31.1 % (19-41); Mean Corp Hgb Conc 31.7 g/dL (32-36); Mean Corpuscular Hgb 26.3 pg (27.0-32.0); Mean Corpuscular Volume 82.9 fL (81-99); Mean Platelet Vol. 9.9 fl (6.2-12.0); Monocyte# 0.94 X10^3/uL; Monocyte% 11.4 % (0-10); NRBC Flagged by Analyzer 0 % (0-5); Neutrophil # 4.37 X10^3/uL (2.7-7.7); Neutrophil % 52.8 % (47-70); Platelet Count 327 K/mm3 (150-450); RBC Distribution Width CV 14.3 % (11.6-14.6); RBC Distribution Width SD 42.7 fl (35.1-43.9); Red Blood Count 4.68 M/mm3 (4.2-5.4); White Blood Count 8.3 K/mm3 (4.4-11.0)
[2024-08-17 05:48] LABS: Anion Gap 2 (5-15); BUN 19 mg/dL (7-18); Chloride 111 mmol/L (98-107); Creatinine, Serum 0.53 mg/dL (0.55-1.02); EST Glomerular Filtration Rate 124 mL/min (>60); Est Glom Filt Rate - Afr Amer 150 mL/min (>60); Estimated Creatinine Clearance 75.48 ml/min; Glucose 99 mg/dL (74-106); Potassium 4.3 mmol/L (3.5-5.1); Sodium Level 139 mmol/L (136-145)
[2024-08-17 07:51] VITALS: BP 127/68; PULSE 65; RESP 15; TEMP 37.1; O2SAT 100
--- NOTE | 2024-08-17 09:21 | DCINST_ITS ---
Discharge Instructions Diet Discharge Diet: No restrictions DC O2, CPAP, BIPAP needs Home O2 Discharge instructions: No Dressing / Incision Discharge Activity: Return to Normal Activity Dressing / Incision Call your doctor if you observe: Fever of 101 or Higher, Shortness of breath, Dizziness, Fainting spells, Swelling in the ankles, Chest pain and Increased palpitations (irregular heartbeat) Follow Up Care Test Results: Test results from this visit will be discussed in further detail at your follow- up appointment, if applicable. Discharge Plan Admission Admit Date/Time: 08/16/24 11:08 Attending Provider: Timur Lo Primary Care Provider: Evan Benitez Instructions Patient Instructions: ED Hyperthyroidism Discharge Orders/Prescriptions Prescriptions: New methimazole 10 mg tablet 10 mg PO DAILY 30 Days Qty: 30 0RF metoprolol tartrate 25 mg Tablet 12.5 mg PO BID 30 Days Qty: 30 0RF nicotine 14 mg/24 hr Patch 24 Hour 14 mg transdermal DAILY 30 Days Qty: 30 0RF Continued albuterol sulfate 90 mcg/actuation HFA aerosol inhaler 1 puff inhalation Q6H PRN PRN (Reason: shortness of breath or wheezing) Referrals / Follow Up: Evan Benitez MD [Primary Care Provider] - Within 1 Week Kevin Harmon MD [Med Staff - Courtesy Staff] - Within 1 Month Disposition Disposition (needs filled in before D/C Order can be placed): Home, Self Care
--- NOTE | 2024-08-17 09:54 | CASEMGMT ---
Patient has order for discharge. RN CM in to discuss needs at discharge. Patient and deny needs or help at discharge. Patient states she is having a thumping in her chest again but not as bad. RN CM advised patient that her nurse would be updated. Patient had no further questions or concerns. RN CM updated floor nurse regarding chest thumping.
[2024-08-17 10:04] VITALS: BP 127/68; PULSE 65
[2024-08-17] MEDS: Metoprolol Tartrate 25 MG Tablet PO (10:04)
[2024-08-17] MEDS: Methimazole 5 MG Tablet 10 MG PO (10:04)
--- NOTE | 2024-08-17 15:33 | DS.PCM_ITS ---
Providers Date of Admission: 08/16/24 Primary Care Physician: Dr. Evan Benitez MD Reason For Visit: CHEST PAIN WITH PALPITATIONS AND NEW AFIB Diagnosis Discharge Diagnosis (1) T3 thyrotoxicosis: Status: Acute Code(s): E05.90 - Thyrotoxicosis, unspecified without thyrotoxic crisis or storm Medications at Discharge Home Medications albuterol sulfate 90 mcg/actuation aerosol inhaler 1 puff inhalation Q6H PRN PRN shortness of breath or wheezing 08/16/24 methimazole 10 mg tablet 10 mg PO DAILY 30 days #30 tabs 08/17/24 metoprolol tartrate 25 mg tablet 12.5 mg (1/2 x 25 mg) PO BID 30 days #30 tabs 08/17/24 nicotine 14 mg/24 hr daily transdermal patch 14 mg transdermal DAILY 30 days #30 ea 08/17/24 Hospital Course Operations None Procedures 2-D Echocardiogram Summary of Care Provided Minutes Spent on Discharge: 37 Hospital Course: Per HPI: KELLEY BOSTON, is a 64 F who presents to the hospital with palpitations over the last couple of weeks to months with intermittent chest pain associated with these episodes of palpitations. She has episodes of shortness of breath and dizziness with these palpitation episodes. She does have difficulty sleeping and has a lot of energy and struggle to gain weight. She is very thin and in the ER was found to be in A-fib with RVR, this broke with a single dose of Cardizem and she returned to normal sinus after admission. TSH is significantly low and T4 4 was normal but T3 was elevated to 4.44. Initial troponin was unremarkable as was repeat troponin and EKG was nonischemic. Hospital Course: 1. T3 thyrotoxicosis with A-fib?64-year-old female had been feeling palpitations for several weeks to about a month prior to coming to the hospital. She been having episodes of chest pain with these palpitation as well as shortness of breath and lightheadedness. In the ER she was found to have a severely depressed TSH and her T4 was normal but her T3 was elevated. She was started on metoprolol 25 mg p.o. twice daily however this morning she was sinus bradycardia and down into the 40s so her metoprolol dosage was decreased to 12.5 mg p.o. twice daily. She is also been started on methimazole 10 mg p.o. daily with her first dose on the day of admission. I did discuss the case with endocrinology on the outpatient side who is aware of her and I recommended she follow-up with them in a couple of weeks. Of note her thyroid peroxidase antibody is pending. I discussed with her and her the plan for discharge today they expressed understanding of the risk benefits of going home and would like to go home today. I did advise him that it can take several weeks for the methimazole to reverse her hyperthyroid status so episodes of palpitations are to be expected. She is 64 years old and so from a [id number] standpoint I do not believe that she requires anticoagulation at this time as she is only a score of 1 and will likely not be in A-fib once her hyperthyroidism is treated. Physical Exam Narrative General: Alert, Oriented x3, Cooperative, No apparent distress, thin HEENT: Atraumatic, PERRLA, EOMI, Normocephalic Oral: Moist Mucosa Neck: Supple, No JVD Lungs: Clear to auscultation, Normal air movement, No rhonchi, No wheeze, No rales Cardiovascular: Regular rate, Regular Rhythm, Normal S1, Normal S2, No murmurs Abdomen: Soft, Non Tender, Non-Distended, No Hepato-splenomegaly Extremities: No edema, Capillary Refill Less than 3 Seconds Skin: No rashes, No breakdown Musculoskeletal: No Tenderness to Palpation of Joints or Extremities Neurological: No focal neurological deficits, Motor Exam 5/5 strength throughout, Sensory exam intact to light touch and pain Psych/Mental Status: Normal Affect, Appropriate Weight / BMI Weight Weight: 98 lb 4.8 oz Body Mass Index (BMI) 18.6 ABG / Lab / Microbiology Data 08/17/24 04:44 08/17/24 04:44 Laboratory: Laboratory Results - last 24 hr 08/16/24 20:28: Troponin I High Sens 17 08/17/24 04:44: WBC 8.3, RBC 4.68, Hgb 12.3, Hct 38.8, MCV 82.9, MCH 26.3 L, M CHC 31.7 L, RDW Std Deviation 42.7, RDW Coeff of Loraine 14.3, Plt Count 327, MPV 9.9, Immature Gran % (Auto) 0.200, Neut % (Auto) 52.8, Lymph % (Auto) 31.1, Camp % (Auto) 11.4 H, Eos % (Auto) 3.5, Baso % (Auto) 1.0, Absolute Neuts (auto) 4.4, Absolute Lymphs (auto) 2.57, Nucleated RBC % 0, Sodium 139, Potassium 4.3, C hloride 111 H, Carbon Dioxide 26.0, Anion Gap 2 L, BUN 19 H, Creatinine 0.53 L, Estim Creat Clear Calc 75.48, Est GFR (MDRD) Af Amer 150, Est GFR (MDRD) Non-Af 124, BUN/Creatinine Ratio 36.0 H, Glucose 99, Calcium 9.0 Radiography Diagnostic Testing: Radiology Impression Echocardiogram 08/16/24 12:45 Interpretation Summary Normal LV size. Left ventricular systolic function is normal. The left ventricular ejection fraction is 60 %. Moderate concentric left ventricular hypertrophy. Stage 1 diastolic dysfunction. Dilated coronary sinus Pulmonary artery systolic pressure is 46 mmHg. The global longitudinal strain is borderline abnormal. Ordering Physician: Timur Lo Referring Physician: Evan Benitez Performed By: Claire Mai, DANA, RVT D/C Instructions Discharge Diet: No restrictions Call your doctor if you observe: Fever of 101 or Higher, Shortness of breath, Dizziness, Fainting spells, Swelling in the ankles, Chest pain and Increased palpitations (irregular heartbeat) DC O2, CPAP, BIPAP Needs Home O2 Discharge instructions: No Meaningful Use Info Meaningful Use Meaningful Use Diagnoses (Choose all that apply): None applicable Ischemic Stroke Statin Dosing Therapy Reference: STATIN DOSE THERAPY REFERENCE: * Patients > 75 years receive moderate or high dose statin therapy. * Patients 75 years or YOUNGER should receive HIGH intensity statin dose unless contraindicated. You will be required to document reason for non-treatment if statin daily dose does not meet guidelines. HIGH DOSE STATIN THERAPY DAILY Atorvastatin > than or = to 40 mg Rosuvastatin > than or = to 20 mg Amlodipine + Atorvastatin > than or = to 2.5/40 mg Ezetimibe + Simvastatin 10/80 mg Simvastatin 80mg Discharge Plan Admission Admit Date/Time: 08/16/24 11:08 Attending Provider: Timur Lo Primary Care Provider: Eavn Benitez Instructions Patient Instructions: ED Hyperthyroidism Discharge Orders/Prescriptions Prescriptions: New methimazole 10 mg tablet 10 mg PO DAILY 30 Days Qty: 30 0RF metoprolol tartrate 25 mg Tablet 12.5 mg PO BID 30 Days Qty: 30 0RF nicotine 14 mg/24 hr Patch 24 Hour 14 mg transdermal DAILY 30 Days Qty: 30 0RF Continued albuterol sulfate 90 mcg/actuation HFA aerosol inhaler 1 puff inhalation Q6H PRN PRN (Reason: shortness of breath or wheezing) Referrals / Follow Up: Evan Benitez MD [Primary Care Provider] - Within 1 Week Kevin Harmon MD [Med Staff - Courtesy Staff] - Within 1 Month Disposition Disposition (needs filled in before D/C Order can be placed): Home, Self Care Charges/Coding Visit Charges Inpatient E&M: 37489 Disch Hosp >30min
[2024-08-18 04:07] LABS: Thyroid Peroxidase AB > 600 IU/mL (0-34)
== END 2024-08-17 11:44 | disposition home or self-care (01) | DRG 643 ==
LOC: ED 10:17 → PCU 08-17 09:24
PROVIDERS: Internal Medicine; Admitting Provider Family Medicine; Emergency Provider Surgery; PCP Internal Medicine; Visit Provider Family Medicine
DX: E05.90 Thyrotoxicosis, unspecified without thyrotoxic crisis or storm (principal); I50.31 Acute diastolic (congestive) heart failure; I11.0 Hypertensive heart disease with heart failure; J44.9 Chronic obstructive pulmonary disease, unspecified; I48.91 Unspecified atrial fibrillation; F17.210 Nicotine dependence, cigarettes, uncomplicated; G47.00 Insomnia, unspecified
CPT/HCPCS: 36415; 71045; 80048; 83735; 83880; 84439; 84443; 84481; 84484; 85025; 85610; 85730; 86376; 93005; 93306; 96374; 99221; 99285; A4216; G0378

== ENCOUNTER → 2024-09-13 | Outpatient (CLI) | payer BC, SELFPAY ==
[2024-09-13 16:17] LABS: T4 Free Direct 0.55 ng/dL (0.76-1.46); Thyroid Stim Hormone (TSH) 0.646 uIU/mL (0.358-3.740)
[2024-09-13 16:18] LABS: Vitamin D,25 Hydroxy 17.8 ng/mL
== END | disposition home or self-care (01) ==
LOC: BIMLAB 11:35
PROVIDERS: PCP Internal Medicine; Visit Provider Internal Medicine Endocrinology, Diabetes & Metabolism
DX: E05.90 Thyrotoxicosis, unspecified without thyrotoxic crisis or storm (principal); E55.9 Vitamin D deficiency, unspecified
CPT/HCPCS: 36415; 82306; 84439; 84443; 84481

== ENCOUNTER 2024-09-29 15:41 | Outpatient (CLI) | payer BC, SELFPAY ==
[2024-09-29] MEDS: 0.9% NaCl Peripheral Flush Adult/Peds IV (16:15)
[2024-09-29] MEDS: 0.9% Normal Saline (100mL Bag) 100 ML 15 ML IV (16:15)
[2024-09-29 16:16] VITALS: BP 138/73; PULSE 82; RESP 16; TEMP 36.8; BMI 18.8
[2024-09-29] MEDS: Zoledronic Acid 5 MG 100 ML 300 MG IV (16:16)
[2024-09-29 16:37] VITALS: BP 133/76; PULSE 64; RESP 16; TEMP 37.1; O2SAT 91
== END 2024-09-29 23:59 | disposition home or self-care (01) ==
LOC: MEDOUTP 15:42
PROVIDERS: PCP Internal Medicine; Referring Provider Internal Medicine Endocrinology, Diabetes & Metabolism; Visit Provider Internal Medicine Endocrinology, Diabetes & Metabolism
DX: M81.0 Age-related osteoporosis without current pathological fracture (principal)
CPT/HCPCS: 96365; A4216; J3489

== ENCOUNTER → 2024-11-01 | Outpatient (CLI) | payer BC, SELFPAY ==
[2024-11-01 17:38] LABS: Free T3 3.3 pg/mL (2.18-3.98); Thyroid Stim Hormone (TSH) 0.439 uIU/mL (0.300-4.200)
== END | disposition home or self-care (01) ==
LOC: BIMLAB 14:58
PROVIDERS: PCP Internal Medicine; Referring Provider Internal Medicine Endocrinology, Diabetes & Metabolism; Visit Provider Internal Medicine Endocrinology, Diabetes & Metabolism
DX: E05.90 Thyrotoxicosis, unspecified without thyrotoxic crisis or storm (principal)
CPT/HCPCS: 36415; 84439; 84443; 84481

== ENCOUNTER → 2024-11-09 | Outpatient (CLI) | payer BC, SELFPAY ==
--- NOTE | 2024-11-09 16:00 | BI_ITS ---
EXAM: SCRN MAMM (CAD)W/MARY BILAT 11/09/2024 CLINICAL HISTORY: F, Age 64 y/o , BREAST CANCER SCREENING TECHNIQUE: Bilateral screening digital breast tomosynthesis with 2D and 3D images. Computer aided detection. COMPARISON: Prior exam(s) dated 12/02/2022, 11/15/2020. FINDINGS: TISSUE DENSITY: The breast tissue is heterogenously dense, which may obscure small masses. The mammogram demonstrates that the patient has dense breasts. Supplemental screening with whole breast ultrasound or MRI may be considered for further evaluation. Bilateral Breast Mammographic Findings: No significant masses, calcifications or other abnormalities are identified. BI/SCRN MAMM (CAD)W/MARY BILAT IMPRESSION: Right Breast: BIRADS 1 NEGATIVE. Left Breast: BIRADS 1 NEGATIVE. OVERALL FINAL ASSESSMENT: BIRADS 1 NEGATIVE. RECOMMENDATION: Routine annual follow-up in 1 Year A letter with findings and recommendations will be mailed to the patient. Reading Location: [id number]
== END | disposition home or self-care (01) ==
LOC: OPBI 15:46
PROVIDERS: PCP Internal Medicine; Referring Provider Internal Medicine; Visit Provider Internal Medicine
DX: Z12.31 Encounter for screening mammogram for malignant neoplasm of breast (principal)
CPT/HCPCS: 77063; 77067

== ENCOUNTER → 2025-01-09 | Outpatient (CLI) | payer BC, SELFPAY ==
[2025-01-09 17:54] LABS: Free T3 3.5 pg/mL (2.18-3.98)
== END | disposition home or self-care (01) ==
LOC: BIMLAB 15:10
PROVIDERS: PCP Internal Medicine; Referring Provider Internal Medicine Endocrinology, Diabetes & Metabolism; Visit Provider Internal Medicine Endocrinology, Diabetes & Metabolism
DX: E05.90 Thyrotoxicosis, unspecified without thyrotoxic crisis or storm (principal)
CPT/HCPCS: 36415; 84439; 84443; 84481

== ENCOUNTER → 2025-03-01 | Outpatient (CLI) | payer BC, SELFPAY ==
[2025-03-01 16:38] LABS: Hematocrit 38.3 % (37-47); Hemoglobin 11.8 g/dL (12.0-15.0); Immature Granulocytes Count 0.050 X10^3/uL (0.0-0.0); Mean Corp Hgb Conc 30.8 g/dL (32-36); Mean Corpuscular Volume 88.2 fL (81-99); Mean Platelet Vol. 10.2 fl (6.2-12.0); NRBC Flagged by Analyzer 0 % (0-5); Platelet Count 311 K/mm3 (150-450); RBC Distribution Width CV 15.5 % (11.6-14.6); RBC Distribution Width SD 50.4 fl (35.1-43.9); Red Blood Count 4.34 M/mm3 (4.2-5.4); White Blood Count 8.7 K/mm3 (4.4-11.0)
[2025-03-01 17:06] LABS: AST(SGOT) 27 U/L (<=31); Alanine Aminotransfer ALT/SGPT 21 U/L (<=34); Albumin, Serum 4.2 g/dL (3.4-4.8); Alkaline Phosphatase 77 U/L (35-104); Anion Gap 10 (5-15); BUN 15 mg/dL (4-19); BUN/Creat Ratio 20.4 RATIO (10-20); Calcium,Total 9.5 mg/dL (7.6-11.0); Carbon Dioxide 25.5 mmol/L (21.0-32.0); Chloride 106 mmol/L (98-108); Globulin 3.4 g/dL (2.2-4.2); Glucose 90 mg/dL (70-99); Potassium 5.1 mmol/L (3.3-5.1)
== END | disposition home or self-care (01) ==
LOC: BIMLAB 14:39
PROVIDERS: PCP Internal Medicine; Visit Provider Internal Medicine
DX: I10 Essential (primary) hypertension (principal); E05.90 Thyrotoxicosis, unspecified without thyrotoxic crisis or storm
CPT/HCPCS: 36415; 80053; 84443; 85025